=== PATIENT | female | born 1985 | race Caucasian/White ===

== ENCOUNTER → 2017-09-20 | Outpatient (CLI) | payer OTHER ==
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
== END | disposition home or self-care (01) ==
LOC: RADMRIMAIN 14:11
PROVIDERS: ATTEND Family Medicine
DX: R51 Headache (principal); R41.3 Other amnesia
CPT/HCPCS: 70553; A9581

== ENCOUNTER 2019-12-22 09:18 | Emergency (ER) | payer OTHER ==
[2019-12-22 09:22] VITALS: TEMP 97.5
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
[2019-12-22 10:42] VITALS: RESP 20
[2019-12-22 10:44] VITALS: BP 105/72; PULSE 62
== END 2019-12-22 10:50 | disposition home or self-care (01) ==
LOC: EC 09:18
DX: S63.501A Unspecified sprain of right wrist, initial encounter (principal); S80.02XA Contusion of left knee, initial encounter; V43.52XA Car driver injured in collision with other type car in traffic accident, initial encounter; W22.10XA Striking against or struck by unspecified automobile airbag, initial encounter; Y92.410 Unspecified street and highway as the place of occurrence of the external cause
CPT/HCPCS: 71045; 99284

== ENCOUNTER 2020-08-12 15:55 | Emergency (ER) | payer OTHER ==
[2020-08-12 16:04] VITALS: BP 95/61; PULSE 72; RESP 20; TEMP 98.5
[2020-08-12] MEDS ORDERED: BACITRACIN OINT 1 EACH PACKET TOPICAL ONE (16:16)
[2020-08-12] MEDS ORDERED: LIDOCAINE 1% INJ 10MG/ML (20 ML MDV) SQ ONE (16:16)
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
== END 2020-08-12 17:07 | disposition home or self-care (01) ==
LOC: EC 15:55
DX: S31.010A Laceration without foreign body of lower back and pelvis without penetration into retroperitoneum, initial encounter (principal); Z88.2 Allergy status to sulfonamides; W01.198A Fall on same level from slipping, tripping and stumbling with subsequent striking against other object, initial encounter; Y93.E1 Activity, personal bathing and showering; Y92.002 Bathroom of unspecified non-institutional (private) residence as the place of occurrence of the external cause
CPT/HCPCS: 99282; 12001; J2001

== ENCOUNTER → 2020-10-02 | Outpatient (CLI) | payer OTHER | END | disposition home or self-care (01) | LOC: LABWHC1 09:18 | PROVIDERS: ATTEND Nurse Practitioner Family | DX: R43.2 Parageusia (principal); Z20.828 Contact with and (suspected) exposure to other viral communicable diseases | CPT/HCPCS: U0003; C9803 ==

== ENCOUNTER 2020-12-03 15:56 | Emergency (ER) | payer OTHER ==
[2020-12-03 16:18] VITALS: RESP 18; TEMP 98.9
[2020-12-03 16:54] LABS: HGB 13.5 gm/dL (11.4-16.0); RBC 4.39 m/uL (3.80-5.40); WBC 6.8 k/uL (3.8-10.6)
[2020-12-03 16:55] LABS: Basophils % (A) 1 %; Eosinophils % (A) 3 %; HCT 40.7 % (34.0-46.0); Lymphocytes % (A) 21 %; MCH 30.8 pg (25.0-35.0); MCHC 33.2 g/dL (31.0-37.0); MCV 92.8 fL (80.0-100.0); Mean Platelet Volume 7.7; Monocytes % (A) 7 %; Neutrophils # (A) 4.5 k/uL (1.3-7.7); Neutrophils % (A) 67 %; Platelet Count 248 k/uL (150-450); RDW 12.6 % (11.5-15.5)
[2020-12-03 16:56] LABS: Basophils # (A) 0.1 k/uL (0-0.2); Eosinophils # (A) 0.2 k/uL (0-0.7); Lymphocytes # (A) 1.5 k/uL (1.0-4.8); Monocytes # (A) 0.5 k/uL (0-1.0)
[2020-12-03 17:00] LABS: ALT 13 U/L (4-34); AST 20 U/L (14-36); African American GFR (CKD) >90 (>60 ml/min/1.73 sqM); Albumin 4.2 g/dL (3.5-5.0); Alkaline Phosphatase 64 U/L (38-126); Anion Gap 11 mmol/L; Blood Urea Nitrogen 15 mg/dL (7-17); Carbon Dioxide 24 mmol/L (22-30); Chloride 106 mmol/L (98-107); Glucose 95 mg/dL (74-99); Magnesium 1.8 mg/dL (1.6-2.3); Non-African American GFR(CKD) >90 (>60 ml/min/1.73 sqM); Potassium 4.1 mmol/L (3.5-5.1); Sodium 141 mmol/L (137-145); Total Bilirubin 0.7 mg/dL (0.2-1.3); Total Protein 7.1 g/dL (6.3-8.2)
[2020-12-03 17:04] LABS: D-Dimer 0.25 mg/L FEU (<0.60); Partial Thromboplastin Time 24.5 sec (22.0-30.0); Prothrombin Time 10.4 sec (9.0-12.0)
--- NOTE | 2020-12-03 17:16 | XR ---
EXAMINATION TYPE: XR chest 2V DATE OF EXAM: 12/03/2020 COMPARISON: 12/22/2019 HISTORY: Chest pain TECHNIQUE: FINDINGS: Heart and mediastinum are normal. Lungs are clear. Diaphragm is normal. Bony thorax appears normal. There are chest leads. IMPRESSION: Normal chest. No change.
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
[2020-12-03 18:09] VITALS: BP 110/68; PULSE 61
== END 2020-12-03 18:08 | disposition home or self-care (01) ==
LOC: EC 15:56 → SUPCPDRO 15:56 → EC 18:08
DX: R07.9 Chest pain, unspecified (principal); Z88.2 Allergy status to sulfonamides
CPT/HCPCS: 36415; 71046; 80053; 83735; 84484; 85025; 85379; 85610; 85730; 93005; 99285

== ENCOUNTER → 2022-01-11 | Outpatient (CLI) | payer OTHER ==
--- NOTE | 2022-01-11 11:38 | US ---
EXAMINATION TYPE: US pelvic complete DATE OF EXAM: 01/11/2022 COMPARISON: Prior pelvic ultrasound 2014 CLINICAL HISTORY: R10.2 PELVIC AND PERINEAL PAIN. TECHNIQUE: . Transabdominal sonographic images of the pelvis were acquired. Transvaginal sonographi c images were medically necessary to better assess the following anatomy: Date of LMP: EXAM MEASUREMENTS: Uterus: 10.6 x 5.0 x 5.6 cm Endometrial Stripe: 0.3 cm Right Ovary: 2.7 x 1.8 x 2.0 cm Left Ovary: 2.6 x 2.0 x 1.6 cm 1. Uterus: IUD appears in position, wnl, anteverted 2. Endometrium: wnl 3. Right Ovary: wnl 4. Left Ovary: wnl 5. Bilateral Adnexa: wnl 6. Posterior cul-de-sac: wnl Anteverted uterus redemonstrated. Central IUD is stable and satisfactory in position. No free fluid. Ovaries symmetric and normal in size. IMPRESSION: No suspicious findings seen. No significant change from prior.
== END | disposition home or self-care (01) ==
LOC: RADUSWWP 10:45
PROVIDERS: ATTEND Obstetrics & Gynecology
DX: R10.2 Pelvic and perineal pain (principal)
CPT/HCPCS: 76856